=== PATIENT | female | born 1980 | race Caucasian/White ===

== ENCOUNTER 2023-04-04 16:44 | Outpatient (CLI) | payer OTHER ==
[~2023-04-04 16:44] MED LIST: GADOBUTROL 10 MMOL/10 ML VIAL ONE
[2023-04-04] MEDS ORDERED: GADOBUTROL 10 MMOL/10 ML VIAL IVP ONE (18:22)
--- NOTE | 2023-04-05 11:00 | MRI Report ---
PROCEDURE: PELVIS W/WO INDICATIONS: PELVIC PAIN, PELVIC MASS CONTRAST: GADAVIST 8.8 ML TECHNIQUE: Coronal ultra fast SE, sagittal breath-hold T2 FSE; axial T1 FSE with and without fat saturation thro ugh the pelvis. Optional long- and short-axis uterine nonbreath-hold T2 FSE through the uterus. Sag ittal or axial dynamic ultra fast GE during administration of contrast. Post-contrast axial or coron al ultra fast GE / 2-D spoiled GE with fat saturation from the iliac crests to the symphysis. Option al diffusion weighted imaging and ADC may be performed. COMPARISON: None. FINDINGS: Image quality: Excellent. Uterus: Uterus is normal in size. Endometrium is normal in thickness. Junctional zone is normal in thickness at 12 mm or less. IUD within the imaged cavity. Adnexa: Multiple T2 hyperintense cystic lesions of the right ovary, with T1 hypointense signal, large st measuring 3.4 cm (series 6, image 25). No internal complexity, consistent with O-RADS 2 cysts. There is dilation of the right fallopian tube, containing a T1 hyperintense signal and T2 shading. Left ovary contains a and T2 hyperintense follicle. Urinary system: Bladder wall is normal in thickness. Distal ureters are non distended. Urethra aris ears normal in morphology. Nodes and vessels: No pelvic or inguinal adenopathy by size criteria. Iliac vessels are normal in s ize. Bowel and peritoneum: No pathologic free pelvic fluid. Inferior colon and small bowel loops are nor mal in caliber. Soft tissues: No inguinal hernias. No findings of pelvic floor incompetence in the absence of provo cation. Bones: Marrow demonstrates normal overall signal. IMPRESSION: Right-sided hematosalpinx without associated nodularity, possibly due to underlying endo metriosis. Right-sided O-RADS 2 cysts, largest measuring 3.4 cm. IUD within the central uterus. Reviewed by: Santosh Perdomo on 04/05/2023 10:58 AM PDT Approved by: Santosh Perdomo on 04/05/2023 10:58 AM PDT Station ID: [id number]
== END 2023-04-04 16:45 | disposition home or self-care (01) ==
LOC: DI 16:44
PROVIDERS: ATTEND Nurse Practitioner Family
DX: N83.6 Hematosalpinx (principal); N83.201 Unspecified ovarian cyst, right side; Z97.5 Presence of (intrauterine) contraceptive device
CPT/HCPCS: 72197; A9585

== ENCOUNTER 2023-05-03 12:31 | Outpatient (CLI) | payer OTHER ==
--- NOTE | 2023-05-03 20:47 | MRI Report ---
PROCEDURE: ANKLE WO - RT INDICATIONS: RIGHT ANKLE INSTABILITY TECHNIQUE: Noncontrast sagittal T1 spin echo and T2 fast spin echo with fat saturation, axial proton density fas t spin echo and T2 fast spin echo with fat saturation, coronal T1 spin echo and T2 fast spin echo wit h fat saturation through the ankle/hindfoot. COMPARISON: None. FINDINGS: Image quality: Excellent. Bones and joints: No bone marrow contusions or fractures. No hindfoot coalitions. No osteochondral injuries of the talar dome. Small joint effusion is seen, no gross loose bodies. Medial structures: The posterior tibialis tendon is mildly thickened with fluid distending tendon sh eath at the level of mid to distal talus and talonavicular joint. The flexor digitorum longus, and fl exor hallucis longus tendons are intact. The posterior tibial neurovascular bundle appears normal wi thin the tarsal tunnel, without extrinsic mass effect. The deltoid ligament and spring ligament are mildly thickened. Lateral structures: The anterior talofibular it is not well seen concerning for chronic ruptured ATF L. The calcaneofibular, and posterior talofibular ligaments appear thickened with intrasubstance T2 h yperintense signal. More superiorly, the anterior and posterior tibiofibular ligaments appear normal , as is the intermalleolar ligament. The tibiofibular syndesmosis is normal in width at 2 mm or less . The peroneus longus and brevis tendons are mildly thickened. Adjacent bony peroneal tubercle and retrotrochlear prominence are normal in size. The sinus tarsi demonstrates normal fatty signal, with out edema, fibrosis, or cyst formation. Visualized sinus tarsi components (cervical ligament, intero sseous talocalcaneal ligament, roots of the inferior extensor retinaculum) appear normal. Anterior structures: The tibialis anterior, extensor hallucis longus, and extensor digitorum longus tendons appear intact. Posterior and plantar structures: Achilles tendon is intact. Medial and lateral bands of the planta r fascia are of normal thickness. No abductor digiti quinti muscle atrophy to suggest Boyer neuropa thy. IMPRESSION: 1. No marrow edema. No fracture or dislocation. No osteochondral injuries of the talar dome. 2. Low-grade tenosynovitis involving posterior tibialis tendon at the level of distal talus and santi avicular joint. 3. Low-grade medial ankle ligament sprain. 4. Suggestion of chronic ATFL rupture. Sprain/low-grade partial thickness tear involving posterior ta lofibular ligament and calcaneofibular ligament is seen. 5. 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 Reviewed by: Henry Cates MD on 05/03/2023 8:46 PM PDT Approved by: Henry Cates MD on 05/03/2023 8:46 PM PDT Station ID: [id number]
== END 2023-05-03 12:32 | disposition home or self-care (01) ==
LOC: DI 12:31
PROVIDERS: ATTEND Student in an Organized Health Care Education/Training Program
DX: M65.9 Synovitis and tenosynovitis, unspecified (principal); S93.401A Sprain of unspecified ligament of right ankle, initial encounter; S93.491A Sprain of other ligament of right ankle, initial encounter; M67.873 Other specified disorders of tendon, right ankle and foot